=== PATIENT | male | born 1960 | race Caucasian/White ===

== ENCOUNTER 2023-06-15 12:29 | Emergency (ER) | payer OTHER ==
[~2023-06-15] VITALS: Ht 167.6 cm; Wt 72.6 kg
[2023-06-15 12:42] VITALS: BP 163/84
[2023-06-15] MEDS ORDERED: Aspirin EC81 MG PO (13:26)
[2023-06-15] MEDS ORDERED: ATOR40TA PO (13:26)
[2023-06-15] MEDS ORDERED: METO25ER PO (13:26)
[2023-06-15] MEDS ORDERED: CEPH500 PO (13:34)
== END 2023-06-15 14:03 | disposition home or self-care (01) ==
LOC: ER 12:29
DX: S30.812A Abrasion of penis, initial encounter (principal); N48.22 Cellulitis of corpus cavernosum and penis; X58.XXXA Exposure to other specified factors, initial encounter; Z79.899 Other long term (current) drug therapy; Z79.82 Long term (current) use of aspirin
CPT/HCPCS: 90471; 90715; 99283-25; A9270